=== PATIENT | female | born 1990 | race American Indian/Alaskan Native ===

== ENCOUNTER 2017-03-02 08:39 | Outpatient (CLI) | payer OTHER ==
--- NOTE | 2017-03-02 09:43 | Ultrasound Report ---
LEFT BREAST ULTRASOUND: 03/02/17 08:39:00 CLINICAL: 26 year old with left breast pain. The order states "nipple discharge" but the patient denied having a discharge. She described only pain in the left breast and no pain in the right breast. COMPARISON: None. FINDINGS: Ultrasound of the left breast(including all four quadrants and the retroareolar area) was performed and demonstrated normal fibroglandular structures with no mass, cyst or shadowing. Ultrasound of the left axilla demonstrated normal lymph nodes with central fat. IMPRESSION: Negative left breast ultrasound. BI-RADS 1 - - Negative RECOMMENDATION: Clinical followup and routine mammographic screening based on ACS guidelines.
== END 2017-03-02 08:40 | disposition home or self-care (01) ==
LOC: SPVWC 08:39
PROVIDERS: ATTEND Obstetrics & Gynecology
DX: N64.4 Mastodynia (principal)